=== PATIENT | female | born 1945 | race Caucasian/White ===

== ENCOUNTER → 2016-07-20 | Outpatient (CLI) | payer MEDICARE, OTHER ==
[~2016-07-20] MED LIST: ACCUPRIL 1010 MG/TAB PO; AMLOPIDINE PO; ATORVASTATIN; CALCIUM CARBON500 M1 PO; HCTZ; HYDROCODONE BIT1 T26 PO; LIPITOR20 MG PO; MVI; MYSOLINE PO; PREMARIN 0.60.625 MG PO; PRILOSEC10 MG PO
== END ==
LOC: MC.RAD 11:11
DX: Z12.31 Encounter for screening mammogram for malignant neoplasm of breast (principal)

== ENCOUNTER → 2017-07-31 | Outpatient (CLI) | payer MEDICARE, OTHER | LOC: MC.RAD 11:37 | DX: Z12.31 Encounter for screening mammogram for malignant neoplasm of breast (principal) ==

== ENCOUNTER 2017-09-06 12:08 | Emergency (ER) | payer MEDICARE, OTHER ==
[~2017-09-06] VITALS: Ht 157.5 cm; Wt 97.3 kg
[2017-09-06 12:22] VITALS: TEMP 98
[2017-09-06] MEDS ORDERED: NORCO 325 MG-51 TAB PO (18:19)
[2017-09-06 18:45] VITALS: BP 123/56; PULSE 88
== END 2017-09-06 19:25 | disposition home or self-care (01) ==
LOC: COL.ER 12:08
DX: S52.501A Unspecified fracture of the lower end of right radius, initial encounter for closed fracture (principal); I10 Essential (primary) hypertension; S00.93XA Contusion of unspecified part of head, initial encounter; W00.0XXA Fall on same level due to ice and snow, initial encounter; W22.8XXA Striking against or struck by other objects, initial encounter; Y92.009 Unspecified place in unspecified non-institutional (private) residence as the place of occurrence of the external cause
CPT/HCPCS: J2250; J2405; J2704; J2765; J3010; J7030

== ENCOUNTER 2017-09-09 13:09 | Emergency (ER) | payer MEDICARE, OTHER ==
[~2017-09-09] VITALS: Ht 157.5 cm; Wt 97.3 kg
[~2017-09-09 13:09] MED LIST changes: +NORCO 325 MG-51 TAB PO
[2017-09-09 13:13] VITALS: TEMP 97.6
[2017-09-09] MEDS ORDERED: ANTIVERT 25MG25 MG PO (15:11)
[2017-09-09 15:45] VITALS: BP 116/91; PULSE 81
== END 2017-09-09 15:55 | disposition home or self-care (01) ==
LOC: COL.ER 13:09
DX: R42 Dizziness and giddiness (principal); T81.89XA Other complications of procedures, not elsewhere classified, initial encounter